=== PATIENT | male | born 1970 | race Caucasian/White ===

== ENCOUNTER 2016-08-03 06:11 | Emergency (ER) | payer MEDICARE, OTHER | END 2016-08-03 07:16 | disposition home or self-care (01) | LOC: ER1 06:11 | DX: M10.9 Gout, unspecified (principal); E07.9 Disorder of thyroid, unspecified; Z79.899 Other long term (current) drug therapy | CPT/HCPCS: 96372; 99283; J1100 ==

== ENCOUNTER 2016-09-30 14:37 | Emergency (ER) | payer MEDICARE, OTHER | END 2016-09-30 15:27 | disposition home or self-care (01) | LOC: ER1 14:37 | DX: M10.9 Gout, unspecified (principal); Z88.8 Allergy status to other drugs, medicaments and biological substances; Z79.899 Other long term (current) drug therapy | CPT/HCPCS: 96372; 99283; J1100; J1885 ==

== ENCOUNTER 2020-07-03 12:06 | Emergency (ER) | payer MEDICARE, SELFPAY ==
[~2020-07-03 12:06] MED LIST: CELEBREX100 MG PO; CLEOCIN HCL300 MG PO; COLCHICINE 0.60.6 MG PO; COLCHICINE0.6 M1 PO; DELSYM30 MG/5 ML PO; ELIQUIS 5 MG TAB5 MG PO; IBUPROFEN600 MG PO; INDOCIN 50 MG C50 MG PO; LEVOXYL100 MCG PO; MEDROL DOSEPAK 24 MG PO; MEDROL4 MG PO; NAPROSYN500 MG PO; NEURONTIN 300300 MG PO; NORCO 5-325 TA1 EACH PO; NORCO 7.5-3251 EACH PO; OMEPRAZOLE MAGN20 MG PO; ONDANSETRON ODT4 MG SL; PREDNISONE 20 M20 MG PO; PREDNISONE 50 M50 MG PO; TORADOL 10 MG T10 MG PO; ZITHROMAX250 MG PO; ZOFRAN ODT 4 MG4 MG PO
[2020-07-03] MEDS ORDERED: MEDROL DOSEPAK 24 MG PO (12:57)
[2020-07-03] MEDS ORDERED: COLCHICINE 0.60.6 MG PO (12:57)
[2020-07-03] MEDS ORDERED: Voltaren Gel 1 % TOP (12:57)
== END 2020-07-03 13:34 | disposition home or self-care (01) ==
LOC: ER1 12:06
DX: M10.061 Idiopathic gout, right knee (principal); Z79.899 Other long term (current) drug therapy; Z98.890 Other specified postprocedural states
CPT/HCPCS: 96372; 99283; J1885; J2930

== ENCOUNTER 2020-08-07 16:59 | Emergency (ER) | payer MEDICARE, SELFPAY ==
[~2020-08-07 16:59] MED LIST changes: +Voltaren Gel 1 % TOP
[2020-08-07] MEDS ORDERED: MEDROL DOSEPAK 24 MG PO (18:09)
[2020-08-07] MEDS ORDERED: COLCHICINE 0.60.6 MG PO (18:10)
== END 2020-08-07 18:06 | disposition home or self-care (01) ==
LOC: ER1 16:59
DX: M10.9 Gout, unspecified (principal); M13.861 Other specified arthritis, right knee; M13.871 Other specified arthritis, right ankle and foot; F17.210 Nicotine dependence, cigarettes, uncomplicated
CPT/HCPCS: 96372; 99283; J1100

== ENCOUNTER → 2020-11-07 | Outpatient (CLI) | payer MEDICARE, OTHER ==
[~2020-11-07] MED LIST changes: +BENTYL 20MG TAB20 MG PO
[2020-11-07 18:09] LABS: HEMOGLOBIN 15.6 gm/dl (14.0-17.5); RED BLOOD COUNT 5.42 M/UL (4.20-5.50); WHITE BLOOD COUNT 7.9 K/UL (4.5-11.0)
[2020-11-07 18:38] LABS: BUN/CREATININE RATIO 7 (0-10)
[2020-11-16 15:11] LABS: TESTOSTERONE, SERUM 206 ng/dL (264-916)
== END ==
LOC: LAB 17:21
PROVIDERS: Family Medicine
DX: E03.9 Hypothyroidism, unspecified (principal); E78.2 Mixed hyperlipidemia; M10.9 Gout, unspecified; R79.89 Other specified abnormal findings of blood chemistry; Z12.5 Encounter for screening for malignant neoplasm of prostate; R53.83 Other fatigue
CPT/HCPCS: 80053; 80061; 82607; 84402; 84403; 84439; 84443; 84550; 85027; G0103

== ENCOUNTER 2020-11-08 16:20 | Emergency (ER) | payer MEDICARE, OTHER ==
[~2020-11-08 16:20] MED LIST changes: -BENTYL 20MG TAB20 MG PO
== END 2020-11-08 20:10 | disposition home or self-care (01) ==
LOC: ER1 16:20
DX: K92.1 Melena (principal); M10.9 Gout, unspecified
CPT/HCPCS: 99283; Q9967

== ENCOUNTER 2020-11-11 10:36 | Emergency (ER) | payer MEDICARE, OTHER ==
[2020-11-11 12:04] LABS: HEMOGLOBIN 15.9 gm/dl (14.0-17.5); RED BLOOD COUNT 5.51 M/UL (4.20-5.50); WHITE BLOOD COUNT 7.4 K/UL (4.5-11.0)
[2020-11-11 12:38] LABS: BUN/CREATININE RATIO 6 (0-10)
[2020-11-11] MEDS ORDERED: BENTYL 20MG TAB20 MG PO (14:47)
== END 2020-11-11 15:00 | disposition home or self-care (01) ==
LOC: ER1 10:36
PROVIDERS: Physician Assistant
DX: R10.84 Generalized abdominal pain (principal); R11.2 Nausea with vomiting, unspecified; R19.7 Diarrhea, unspecified; Z79.899 Other long term (current) drug therapy; F17.200 Nicotine dependence, unspecified, uncomplicated
CPT/HCPCS: 80053; 81001; 83690; 85025; 96374; 96375; 99284; J2270; J2405; Q9967

== ENCOUNTER 2021-02-04 05:49 | Emergency (ER) | payer OTHER, MEDICARE ==
[~2021-02-04 05:49] MED LIST changes: +BENTYL 20MG TAB20 MG PO
[2021-02-04 07:12] LABS: HEMOGLOBIN 15.4 gm/dl (14.0-17.5); RED BLOOD COUNT 5.44 M/UL (4.20-5.50); WHITE BLOOD COUNT 10.4 K/UL (4.5-11.0)
[2021-02-04 07:33] LABS: BUN/CREATININE RATIO 7 (0-10)
== END 2021-02-04 08:50 | disposition home or self-care (01) ==
LOC: ER1 05:49
PROVIDERS: Physician Assistant
DX: S09.90XA Unspecified injury of head, initial encounter (principal); S16.1XXA Strain of muscle, fascia and tendon at neck level, initial encounter; S80.211A Abrasion, right knee, initial encounter; S00.81XA Abrasion of other part of head, initial encounter; Z23 Encounter for immunization; Z20.822 Contact with and (suspected) exposure to COVID-19; V49.40XA Driver injured in collision with unspecified motor vehicles in traffic accident, initial encounter; Y92.410 Unspecified street and highway as the place of occurrence of the external cause
CPT/HCPCS: 70450; 71260; 72072; 72100; 72125; 73564; 80053; 85025; 90471; 90715; 99284; G0480; Q9967; U0002

== ENCOUNTER → 2021-05-31 | Outpatient (CLI) | payer MEDICARE ==
[2021-05-31 10:57] LABS: HEMOGLOBIN 16.3 gm/dl (14.0-17.5); RED BLOOD COUNT 5.91 M/UL (4.20-5.50); WHITE BLOOD COUNT 6.4 K/UL (4.5-11.0)
[2021-06-01 07:11] LABS: A/G RATIO 1.7 (1.2-2.2); ALKALINE PHOSPHATASE, S 61 IU/L (44-121); ALT (SGPT) 6 IU/L (0-44); AST (SGOT) 11 IU/L (0-40); BILIRUBIN, TOTAL 0.3 mg/dL (0.0-1.2); BUN 5 mg/dL (6-24); BUN/CREATININE RATIO 4 (9-20); CALCIUM, SERUM 9.7 mg/dL (8.7-10.2); CARBON DIOXIDE, TOTAL 24 mmol/L (20-29); CHLORIDE, SERUM 103 mmol/L (96-106); CREATININE, SERUM 1.22 mg/dL (0.76-1.27); EGFR IF AFRICN AM 79 (>59); EGFR IF NONAFRICN AM 68 (>59); GLOBULIN, TOTAL 2.5 g/dL (1.5-4.5); GLUCOSE, SERUM 102 mg/dL (65-99); POTASSIUM, SERUM 4.5 mmol/L (3.5-5.2); PROTEIN, TOTAL, SERUM 6.7 g/dL (6.0-8.5); SODIUM, SERUM 142 mmol/L (134-144)
[2021-06-01 08:13] LABS: CHOLESTEROL, TOTAL 160 mg/dL (100-199); HDL CHOLESTEROL 27 mg/dL (>39); LDL CHOLESTEROL CALC 108 mg/dL (0-99); MAGNESIUM 1.9 mg/dL (1.6-2.3); T. CHOL/HDL RATIO 5.9 ratio (0.0-5.0); TRIGLYCERIDES 137 mg/dL (0-149)
== END ==
LOC: LAB 10:09
PROVIDERS: Family Medicine
DX: E03.9 Hypothyroidism, unspecified (principal); E78.2 Mixed hyperlipidemia; M10.9 Gout, unspecified; R79.89 Other specified abnormal findings of blood chemistry
CPT/HCPCS: 36415; 80053; 80061; 83735; 84402; 84403; 84439; 84443; 84550; 85027

== ENCOUNTER 2021-06-24 12:49 | Emergency (ER) | payer MEDICARE ==
[2021-06-24] MEDS ORDERED: INDOCIN 50 MG C50 MG PO (14:46)
== END 2021-06-24 15:01 | disposition home or self-care (01) ==
LOC: ER1 12:49
DX: M10.9 Gout, unspecified (principal); F17.200 Nicotine dependence, unspecified, uncomplicated; I10 Essential (primary) hypertension
CPT/HCPCS: 96372; 99283; J1100; J1885

== ENCOUNTER 2021-08-11 03:49 | Emergency (ER) | payer MEDICARE ==
[2021-08-11] MEDS ORDERED: COLCHICINE0.6 M1 PO (05:27)
[2021-08-11] MEDS ORDERED: PREDNISONE 20 M20 MG PO (05:27)
[2021-08-11] MEDS ORDERED: ALPRAZOLAM1 MG PO (14:36)
[2021-08-11] MEDS ORDERED: ABILIFY10 MG PO (14:37)
[2021-08-11] MEDS ORDERED: WELLBUTRIN XL300 M1 PO (14:37)
[2021-08-11] MEDS ORDERED: ALLOPURINOL300 MG PO (14:38)
[2021-08-11] MEDS ORDERED: AMLODIPINE BESY10 MG PO (14:38)
[2021-08-11] MEDS ORDERED: MIRTAZAPINE45 MG PO (14:38)
[2021-08-11] MEDS ORDERED: TADALAFIL5 MG PO (14:39)
[2021-08-11] MEDS ORDERED: COLCHICINE0.6 MG PO (14:39)
[2021-08-11] MEDS ORDERED: LEVOTHYROXINE200 MC2 PO (14:39)
[2021-08-11] MEDS ORDERED: DEPO-TESTO200 MG/1 M IM (14:40)
[2021-08-11] MEDS ORDERED: VITAMIN B12-FO1 EACH PO (14:40)
== END 2021-08-11 05:35 | disposition home or self-care (01) ==
LOC: ER1 03:49
DX: M10.9 Gout, unspecified (principal); I10 Essential (primary) hypertension; Z88.5 Allergy status to narcotic agent
CPT/HCPCS: 73562; 96372; 99283; J1100; J1885

== ENCOUNTER → 2021-08-14 | Day surgery (SDC) | payer MEDICARE ==
[~2021-08-14] MED LIST changes: +ABILIFY10 MG PO; +ALLOPURINOL300 MG PO; +ALPRAZOLAM1 MG PO; +AMLODIPINE BESY10 MG PO; +COLCHICINE0.6 MG PO; +DEPO-TESTO200 MG/1 M IM; +LEVOTHYROXINE200 MC2 PO; +MIRTAZAPINE45 MG PO; +TADALAFIL5 MG PO; +VITAMIN B12-FO1 EACH PO; +WELLBUTRIN XL300 M1 PO
== END | disposition home or self-care (01) ==
LOC: OR 07:17
DX: D12.2 Benign neoplasm of ascending colon (principal); K29.50 Unspecified chronic gastritis without bleeding; K31.9 Disease of stomach and duodenum, unspecified; K44.9 Diaphragmatic hernia without obstruction or gangrene; K92.1 Melena; R63.4 Abnormal weight loss; I10 Essential (primary) hypertension; K21.9 Gastro-esophageal reflux disease without esophagitis; F17.200 Nicotine dependence, unspecified, uncomplicated; F32.A Depression, unspecified; M19.90 Unspecified osteoarthritis, unspecified site; J45.909 Unspecified asthma, uncomplicated; E03.9 Hypothyroidism, unspecified; E78.5 Hyperlipidemia, unspecified; Z68.32 Body mass index [BMI] 32.0-32.9, adult; Z79.899 Other long term (current) drug therapy; Z72.89 Other problems related to lifestyle
CPT/HCPCS: J2001; J2704; J7120

== ENCOUNTER 2021-08-27 14:27 | Emergency (ER) | payer MEDICARE ==
[2021-08-27] MEDS ORDERED: COLCHICINE 0.60.6 MG PO (16:16)
== END 2021-08-27 17:00 | disposition home or self-care (01) ==
LOC: ER1 14:27
DX: M10.9 Gout, unspecified (principal); I10 Essential (primary) hypertension; F17.200 Nicotine dependence, unspecified, uncomplicated
CPT/HCPCS: 96372; 99283; J1100; J1885

== ENCOUNTER → 2021-11-16 | Outpatient (CLI) | payer MEDICARE ==
[2021-11-16 12:18] LABS: HEMOGLOBIN 15.5 gm/dl (14.0-17.5); RED BLOOD COUNT 5.56 M/UL (4.20-5.50); WHITE BLOOD COUNT 10.2 K/UL (4.5-11.0)
[2021-11-16 12:46] LABS: BUN/CREATININE RATIO 8 (0-10)
[2021-11-20 04:09] LABS: TESTOSTERONE, SERUM 147 ng/dL (264-916)
== END ==
LOC: LAB 11:58
PROVIDERS: Family Medicine
DX: I10 Essential (primary) hypertension (principal); E78.2 Mixed hyperlipidemia; R79.89 Other specified abnormal findings of blood chemistry; E03.9 Hypothyroidism, unspecified; M10.9 Gout, unspecified
CPT/HCPCS: 36415; 80053; 80061; 83735; 84402; 84403; 84439; 84443; 84550; 85027